=== PATIENT | male | born 1960 | race Caucasian/White ===

== ENCOUNTER 2017-09-03 05:38 | Day surgery (SDC) | payer BC ==
--- NOTE | 2017-08-27 16:29 | Diagnostic Imaging Report ---
Indication: SOB Technique: 2 views of the chest Comparison: none. Findings: Lungs and pleural spaces are clear. Heart size is upper limits normal. There are old healed right rib fracture deformities. Impression: No acute process
[~2017-09-03] VITALS: Ht 177.8 cm; Wt 96.2 kg
[2017-09-03] VITALS (9 sets, daily range): BP systolic 110–142; BP diastolic 57–91
[~2017-09-03 05:38] MED LIST: FLUCONAZOLE100 MG ORAL; GENVOYA TABLET1 EACH PO; LOSARTAN POTASS50 MG ORAL; OYSCO-500500 M1 PO
[2017-09-03] MEDS ORDERED: Dexamethasone 4mg/ml vial ONE (06:35)
[2017-09-03] MEDS ORDERED: EPINEPHrine 1mg/1ml Amp ONE (06:35)
[2017-09-03] MEDS ORDERED: Ropivacaine 5mg/ml Vial 30ml INJ ONE (06:36)
[2017-09-03] MEDS ORDERED: ACETIC ACID 0.25% IRRIG ONE (06:45)
--- NOTE | 2017-09-03 06:48 | Pre-Procedure Note/Attestation ---
Pre-Procedure Note/Attestation Complete Prior to Procedure Planned Procedure: not applicable Procedure Narrative: High-resolution anoscopy with biopsies, colonoscopy, possible biopsy, polypectomy, hemostasis, submucosal injection Indications for Procedure Pre-Operative Diagnosis: HPV, HIV Attestation I attest that I discussed the nature of the procedure; its benefits; risks and complications; and alternatives (and the risks and benefits of such alternatives ), prior to the procedure, with the patient (or the patient's legal tax compliance representative). I attest that, if there was a reasonable possibility of needing a blood transfusion, the patient (or the patient's legal tax compliance representative) was given the [facility] standardized written summary, pursuant to the Abe Kaden Blood Safety Act ([place] Health and Safety Code # 1645, as amended). I attest that I re-evaluated the patient just prior to the surgery and that there has been no change in the patient's H&P, except as documented below: GREG KHAN Sep 03, 2017 06:48
[2017-09-03] MEDS ORDERED: Acetic Acid 3% Solution 15ml TOPIC ONE (07:00)
[2017-09-03] MEDS ORDERED: LR 1000ml ONE (07:00)
[2017-09-03] MEDS ORDERED: fentaNYL 100 mcg/2 mL IV ONE (07:00)
[2017-09-03] MEDS ORDERED: Propofol 200mg/20ml IV ONE (07:00)
[2017-09-03] MEDS ORDERED: NS Irrig 1000ml ONE (07:00)
[2017-09-03] MEDS ORDERED: Midazolam 2mg/2ml Inj ONE (07:00)
--- NOTE | 2017-09-03 07:27 | Anethesia Preoperative Eval ---
Anesthesia Pre-op PMH/ROS General Date of Evaluation: Sep 03, 2017 Time of Evaluation: 06:50 Anesthesiologist: Fredy ASA Score: ASA 2 Mallampati Score Class I : Soft palate, uvula, fauces, pillars visible Class II: Soft palate, uvula, fauces visible Class III: Soft palate, base of uvula visible Class IV: Only hard plate visible Mallampati Classification: Class II Surgeon: Jackelin Diagnosis: Anal condilomas Surgical Procedure: Anoscopy with BX Anesthesia History: none Family History: no anesthesia problems Allergies: Coded Allergies: PENICILLINS (Verified Allergy, Unknown, 09/02/17) CANNOT REMEMBER REACTION Medications: see eMAR Past Medical History Cardiovascular: Reports: HTN, Denies: CAD, SC, valve dz, arrhythmia, other Pulmonary: Reports: KELSEY, Denies: asthma, COPD, other Gastrointestinal/Genitourinary: Reports: GERD, Denies: CRI, ESRD, other Neurologic/Psychiatric: Denies: dementia, CVA, depression/anxiety, TIA, other Endocrine: Denies: DM, hypothyroidism, steroids, other HEENT: Denies: cataract (L), cataract (R), glaucoma, [place] (L), [place] (R), other Hematology/Immune: Reports: other - HIV + stable on antivirals, Denies: anemia, DVT, bleeding disorder Musculoskeletal/Integumentary: Denies: OA, RA, DJD, DDD, edema, other Other: other - overweight PMH Narrative: as above PSxH Narrative: hernia repair Anesthesia Pre-op Phys. Exam Physician Exam Last Vital Signs Date Time Temp Pulse Resp B/P (MAP) Pulse Ox O2 Delivery O2 Flow Rate FiO2 09/03/17 06:03 97.7 64 20 142/91 98 Room Air Constitutional: NAD Neurologic: CN 2-12 intact Cardiovascular: RRR, no M/R/G Respiratory: CTA Gastrointestinal: S/NT/ND Airway Exam Mallampati Score: Class II MO: full Neck: flexible ROM: full Teeth: intact Dentures: no upper, no lower Anesthesia Pre-op A/P Labs see chart Studies Pre-op Studies: EKG - NSR Risk Assessment & Plan Assessment: ASA 2 Plan: MAC Status Change Before Surgery: No Pre-Antibiotics Drug: Metronidazole 500 mg Given Within 1 Hr of Incision: Yes Time Given: 07:15 EARLENE DUNBAR M.D. Sep 03, 2017 07:27
[2017-09-03] MEDS ORDERED: LR 1000ml 1,000 ML IVLG SCH (07:58)
--- NOTE | 2017-09-03 07:58 | Immediate Post-Op Evaluation ---
Immediate Post-Op Evalulation Immediate Post-Op Evalulation Procedure: Anoscopy with Bx Colonoscopy, polypectomy Date of Evaluation: Sep 03, 2017 Time of Evaluation: 07:56 IV Fluids: 800 Blood Products: none Estimated Blood Loss: min Urinary Output: none Blood Pressure Systolic: 112 Blood Pressure Diastolic: 58 Pulse Rate: 72 Respiratory Rate: 20 O2 Sat by Pulse Oximetry: 98 Temperature (Fahrenheit): 98.1 Pain Score (1-10): 1 Nausea: No Vomiting: No Complications none Patient Status: awake, patent, none Hydration Status: adequate EARLENE DUNBAR M.D. Sep 03, 2017 07:58
[2017-09-03] MEDS ORDERED: DiphenhydrAMINE 50mg/ml Inj IVP PRN (08:00)
[2017-09-03] MEDS ORDERED: Meperidine 50mg/ml Inj(FOR RIGORS ONLY) IV PRN (08:00)
--- NOTE | 2017-09-03 08:06 | 48 Hour Post Anesthesia Eval ---
Post Anesthesia Evaluation Procedure: Anoscopy with Bx Colonoscopy, polypectomy Date of Evaluation: Sep 03, 2017 Time of Evaluation: 08:30 Blood Pressure Systolic: 116 0: 58 Pulse Rate: 72 Respiratory Rate: 20 Temperature (Fahrenheit): 97.8 O2 Sat by Pulse Oximetry: 99 Airway: patent Nausea: No Vomiting: No Pain Intensity: 1 Hydration Status: adequate Cardiopulmonary Status: stable Mental Status/LOC: patient returned to baseline Follow-up Care/Observations: n/a Post-Anesthesia Complications: none Follow-up care needed: ready to discharge EARLENE DUNBAR M.D. Sep 03, 2017 08:06
--- NOTE | 2017-09-03 08:14 | Brief Operative Note ---
Immediate Post Operative Note Operative Note Pre-op Diagnosis: HPV, HIV Procedure: high resolution anoscopy with biopsies, colonoscopy with cold forceps biopsy Post-op Diagnosis: same, transverse colon polyp Post-op Diagnosis: same as pre-op Findings: consistent w/pre-op dx studies Surgeon: Samantha Khan MD Anesthesiologist: Octavio Smalls Md Anesthesia: moderate sedation Specimen: yes Complications: none Condition: stable Fluids: see anesthesia record Estimated Blood Loss: minimal Drains: none Implant(s) used?: No SAMANTHA KHAN Sep 03, 2017 08:14
--- NOTE | 2017-09-03 16:45 | Operative Note - Dictated ---
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 POSTOPERATIVE DIAGNOSES: Human papilloma virus, human immunodeficiency virus, and transverse colon polyp. PROCEDURES: High-resolution anoscopy with biopsies and colonoscopy with cold forceps biopsy. SURGEON: Samantha Benítez M.D. ANESTHESIOLOGIST: Octavio Daniel M.D. ANESTHESIA: Propofol sedation with local anesthetic. INDICATION FOR PROCEDURE: The patient is a 57-year-old male, who was sent to my office by his physician Dr. Mehrdad Blackmon for abnormal anal Pap smear. The patient was noted to have some atypical squamous cells. The patient also had a history of anal condyloma fulguration in 2001 and was diagnosed with human immunodeficiency virus in 1991. In light of the patient's history, it was determined at this time to proceed with high-resolution anoscopy with biopsies as well as a follow up colonoscopy. DESCRIPTION OF PROCEDURE: Upon consent of the patient, the patient was brought to the operating room and placed in the prone cecilia-knife position on the operating table. Once adequate sedation was established with propofol drip, the patient's buttocks were then prepped and draped in usual surgical fashion. A 40 mL of 0.5% ropivacaine with epinephrine mixed with 6 mg of dexamethasone was used as a perianal and pudendal block. A Hill-Milan retractors were placed in the anal canal and there was noted to be some mild stenosis secondary to his previous surgery. Multiple biopsies were taken from all four quadrants of the perianal region, anal verge, and dentate line. These were all sent off of the field as separate specimens. The post biopsy sites were electrofulgurated. The anal canal was then stained with 2% acetic acid. All areas of staining white were electrofulgurated as well. The anal canal was then irrigated and hemostasis confirmed. The patient was then repositioned in left lateral position for the colonoscopy. An Olympus colonoscope was advanced through the anus into the rectum. The descending colon, splenic flexure, transverse colon, hepatic flexure, and ascending colon visualized. The cecum was easily reached and the ileocecal valve and appendiceal orifice were identified. The patient's prep was noted to be good. The terminal ileum was intubated and was noted to be normal. The colonoscope was slowly withdrawn. There was noted to be a small benign-appearing polyp in the transverse colon, which was removed with the cold forceps biopsy. This was sent off of field as specimen. The post polypectomy site was noted to have no active bleeding. Upon reaching the rectum, air was evacuated from the rectal area and the colonoscope was removed. The patient was awakened from anesthesia and brought to postanesthesia recovery in stable condition. ESTIMATED BLOOD LOSS: Less than 5 mL. DRAINS: None. SPECIMEN: Multiple biopsies of the perianal region, anal verge, and dentate line and transverse colon polyp. COMPLICATIONS: None. Samantha Benítez M.D. DR: EMMETT JOB#: [id number] CC: Samantha Benítez M.D.; Fax#: [phone] MEHRDAD BLACKMON M.D. ; FAX#: [phone]
== END 2017-09-03 09:10 | disposition home or self-care (01) ==
LOC: SUR 05:38
DX: K63.5 Polyp of colon (principal); B20 Human immunodeficiency virus [HIV] disease; B97.7 Papillomavirus as the cause of diseases classified elsewhere; K62.9 Disease of anus and rectum, unspecified; I10 Essential (primary) hypertension; M85.80 Other specified disorders of bone density and structure, unspecified site; K21.9 Gastro-esophageal reflux disease without esophagitis; G47.33 Obstructive sleep apnea (adult) (pediatric); Z88.0 Allergy status to penicillin
CPT/HCPCS: 45380; 46606; 71020; J0171; J1100; J2250; J2704; J2795; J3010; J7120; 94003; 94150